=== PATIENT | female | born 1950 | race Caucasian/White ===

== ENCOUNTER 2018-09-06 08:41 | Day surgery (SDC) | payer BC ==
[2018-09-06] MEDS ORDERED: ONDANSETRON HCL IV 4 MG/2 ML VIAL IVP ONE (08:42)
[2018-09-06] MEDS ORDERED: PROPOFOL 10 MG/ML VIAL IV ONE (08:42)
[2018-09-06] MEDS ORDERED: LIDOCAINE 2% MDV (20MG/ML) 20ML VIAL IV ONE (08:42)
--- NOTE | 2018-09-08 13:40 | Operative Note ---
OPERATION: COLONOSCOPY to the cecum and terminal ileum. INDICATION: History of adenomatous polyps removed in the past. Her last examination was in 2013. She returns at this time for surveillance. ANESTHESIA: Intravenous sedation was administered by the department of anesthesiology and included Diprivan titrated to effect. PROCEDURE: Following informed consent from this alert individual including a discussion of the risks and benefits of the procedure and an opportunity for the patient to ask questions, the patient was in the left lateral decubitus position. A digital rectal examination was performed. No abnormalities were noted. Following this, the Olympus [id number] video colonoscope was inserted into the rectum without resistance. The rectal mucosa had a normal appearance with normal folds and distensibility. The colonoscope was advanced up through the bowel to the level of the cecum without much difficulty. Throughout the bowel the mucosa appeared normal, the folds were normal, and the bowel was fairly well distensible. The cecum was defined by noting the appendiceal orifice and ileocecal valve. The terminal ileum was briefly cannulated and found to be unremarkable. From the base of the cecum, the colonoscope was then withdrawn. Again, no abnormalities were detected throughout the bowel. The colon preparation was good. Retroflexion in the rectum did reveal small internal hemorrhoids. The endoscope was straightened and withdrawn. The patient tolerated the procedure well and was returned to the recovery area in stable condition. IMPRESSION: Small internal hemorrhoids. Otherwise unremarkable colonoscopy to the cecum and terminal ileum. RECOMMENDATIONS: Because of the patient's prior history of adenomatous polyps, I did recommend a surveillance examination in 5 years' time or sooner if problems arise. Followup will otherwise be with Dr. Sanchez. As always, thank you for allowing me to participate in the care of your patient. LOLI
== END 2018-09-06 10:45 | disposition home or self-care (01) ==
LOC: HOP 08:41
PROVIDERS: ATTEND Internal Medicine Gastroenterology
DX: Z12.11 Encounter for screening for malignant neoplasm of colon (principal); Z86.010 Personal history of colon polyps; I10 Essential (primary) hypertension; E78.00 Pure hypercholesterolemia, unspecified; M19.90 Unspecified osteoarthritis, unspecified site
CPT/HCPCS: 00812; G0105; J2405